=== PATIENT | male | born 1960 | race Caucasian/White ===

== ENCOUNTER 2016-10-16 21:02 | Emergency (ER) | payer OTHER ==
[~2016-10-16] VITALS: Ht 154.9 cm; Wt 72.6 kg
[~2016-10-16 21:02] MED LIST: ALBU0.094 IH
[2016-10-16 21:03] VITALS: BP 138/93
--- NOTE | 2016-10-16 21:10 | NUR ---
TO ER BED 5
--- NOTE | 2016-10-16 21:12 | NUR ---
56 Y/O M W/C/O BILATERAL UPPER WHEEZES, AND CRAMPING TO UPPER EXTREMITIES X 2 HRS AGO. O2 SAT 98%, WHEEZES NOTED BILATERAL UPPER LOBES, TALKING, NO OTHER S/S OF DISTRESS NOTED. ER MD NOTIFIED.
--- NOTE | 2016-10-16 21:40 | NUR ---
PT RESTING IN BED, O2 SAT 99%, RA, NO S/S OF RESP DISTRESS PRESENT AT THE MOMENT. WILL CONT TO MONITOR.
[2016-10-16] MEDS: ALBUTEROL SULFATE/IPRATROPIU 3 ML SOL IH ONE (21:50)
[2016-10-16] MEDS: methylPREDNISolone SS 125 MG in WATER STERILE 2 ML IM ONE (21:54)
[2016-10-16 22:11] VITALS: BP 124/82
--- NOTE | 2016-10-16 22:11 | NUR ---
Patient discharged with v/s stable. Written and verbal after care instructions given and explained. Patient alert, oriented and verbalized understanding of instructions. Ambulatory with steady gait. All questions addressed prior to discharge. ID band removed. Patient advised to follow up with PMD TOMORROW OR RETURN TO ER IF CONDITION WORSENS. Rx of ATROVENT, AND PREDNISONE given. Patient educated on indication of medication including possible reaction and side effects. Opportunity to ask questions provided and answered.
== END 2016-10-16 22:11 | disposition home or self-care (01) ==
LOC: MED 21:02
DX: J45.901 Unspecified asthma with (acute) exacerbation (principal); R03.0 Elevated blood-pressure reading, without diagnosis of hypertension; Z71.6 Tobacco abuse counseling; J44.9 Chronic obstructive pulmonary disease, unspecified; F17.200 Nicotine dependence, unspecified, uncomplicated
CPT/HCPCS: 71010; 94640; 96372; 99283; J2930; J7620; Q0092

== ENCOUNTER 2017-08-03 06:25 | Emergency (ER) | payer OTHER ==
[~2017-08-03] VITALS: Ht 180.3 cm; Wt 70.3 kg
[2017-08-03 06:30] VITALS: BP 105/74
[2017-08-03] MEDS ORDERED: predniSONE 20 MG TAB PO ONE (06:45)
[2017-08-03] MEDS ORDERED: ALBUTEROL SULFATE/IPRATROPIU 3 ML SOL IH ONE (06:45)
[2017-08-03] MEDS ORDERED: ALBUTEROL 0.083% 2.5 MG/3 ML NEBU INH ONE ×2 (06:45→07:35)
[2017-08-03] MEDS ORDERED: AZITHROMYCIN 250 MG TAB PO ONE (07:35)
[2017-08-03 08:19] VITALS: BP 120/66
== END 2017-08-03 08:19 | disposition home or self-care (01) ==
LOC: MED 06:25
DX: J45.909 Unspecified asthma, uncomplicated (principal); F17.210 Nicotine dependence, cigarettes, uncomplicated
CPT/HCPCS: 94640; 99284; J7512; J7613; J7620

== ENCOUNTER 2018-06-01 00:47 | Emergency (ER) | payer OTHER ==
[~2018-06-01] VITALS: Ht 180.3 cm; Wt 72.6 kg
[2018-06-01 01:00] VITALS: BP 123/48
--- NOTE | 2018-06-01 01:03 | NUR ---
PT AMBULATED TO LOBBY.
--- NOTE | 2018-06-01 01:17 | NUR ---
PT TAKEN TO [facility] FROM [facility]
--- NOTE | 2018-06-01 01:31 | NUR ---
PT TAKEN TO BED 12
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
[2018-06-01 02:30] VITALS: BP 109/64
== END 2018-06-01 02:30 | disposition home or self-care (01) ==
LOC: MED 00:47
DX: M79.605 Pain in left leg (principal); W22.8XXA Striking against or struck by other objects, initial encounter; Y93.01 Activity, walking, marching and hiking; Y92.89 Other specified places as the place of occurrence of the external cause; Y99.8 Other external cause status
CPT/HCPCS: 73590; 99283

== ENCOUNTER 2018-06-05 11:55 | Emergency (ER) | payer OTHER ==
[~2018-06-05] VITALS: Ht 180.3 cm; Wt 70.8 kg
[2018-06-05 12:01] VITALS: BP 129/76
--- NOTE | 2018-06-05 12:07 | NUR ---
PATIENT AMBULATED TO BED 3.
--- NOTE | 2018-06-05 12:10 | NUR ---
C/O FOOT PAIN X4 DAYS. WAS SEEN IN [facility] ER 06/01/18 FOR FOOT PAIN AND WAS INFORMED IT IS "SPRAINED". PT STATES L FOOT HAS GOTTEN REDDER, MORE SWOLLEN AND PAINFUL SINCE THEN. DENIES N/V/D/FEVER OR ANY NEW INJURY. L FOOT APPEARS REDDENED/SWOLLEN W/ PITTING EDEMA, <3 SEC CAP REFIL, +2 PEDAL PULSE, MOTOR/SENSORY FUNCTIONS INTACT. AAOX4 WITH UNSTEADY GAIT; LUNGS CLEAR BL; HR EVEN AND REGULAR; PT DENIES ANY FEVER, CP, SOB, OR COUGH AT THIS TIME; VSS; PATIENT POSITIONED FOR COMFORT; HOB ELEVATED; BEDRAILS UP X1; L FOOT ELEVATED. BED DOWN. ER MD MADE AWARE OF PT STATUS.
--- NOTE | 2018-06-05 12:25 | NUR ---
ERMD AT BEDSIDE
[2018-06-05 12:40] VITALS: BP 130/76
--- NOTE | 2018-06-05 12:41 | NUR ---
Patient discharged with v/s stable. Written and verbal after care instructions given and explained. Patient alert, oriented and verbalized understanding of instructions. Ambulatory with steady gait. All questions addressed prior to discharge. ID band removed. Patient advised to follow up with PMD. Rx of NORCO, BACTRIM, KEFLEX given. Patient educated on indication of medication including possible reaction and side effects. Opportunity to ask questions provided and answered.
== END 2018-06-05 12:41 | disposition home or self-care (01) ==
LOC: MED 11:55
DX: L02.436 Carbuncle of left lower limb (principal); J44.9 Chronic obstructive pulmonary disease, unspecified; F17.210 Nicotine dependence, cigarettes, uncomplicated; Z79.899 Other long term (current) drug therapy
CPT/HCPCS: 99283

== ENCOUNTER 2019-02-14 11:24 | Inpatient (IN) | payer OTHER ==
[~2019-02-14] VITALS: Ht 180.3 cm; Wt 69.0 kg
[~2019-02-14 11:24] MED LIST changes: -ALBU0.094 IH; +ALBU6.7H IH
[2019-02-14 11:35] VITALS: BP 155/93
[2019-02-14] MEDS ORDERED: ACETAMINOPHEN 325 MG TAB PO ONE (11:40)
--- NOTE | 2019-02-14 11:42 | NUR ---
Patient ambulated to bed 1. RN evaluating patient at bedside.
[2019-02-14 12:10] LABS: BASOPHILS % (AUTO) 0.4 % (0.0-2.0); EOSINOPHILS # (AUTO) 0.1 K/uL (0-0.4); EOSINOPHILS % (AUTO) 0.6 % (0.0-4.0); HEMATOCRIT 42.3 % (36-52); HEMOGLOBIN 13.9 g/dL (12.0-18.0); LYMPHOCYTES # (AUTO) 0.7 K/uL (2.0-11.5); LYMPHOCYTES % (AUTO) 5.4 % (20.5-51.1); MEAN CORPUSCULAR HEMOGLOBIN 30 pg (27-31); MEAN CORPUSCULAR HGB CONC 33 g/dL (33-37); MEAN CORPUSCULAR VOLUME 90.3 fL (80-94); MONOCYTES # (AUTO) 1.2 K/uL (0.8-1.0); MONOCYTES % (AUTO) 9.8 % (1.7-9.3); NEUTROPHILS # (AUTO) 10.3 K/uL (1.8-7.7); NEUTROPHILS % (AUTO) 83.8 % (42.2-75.2); PLATELET COUNT (AUTO) 300 K/uL (140-450); RED BLOOD CELL COUNT(AUTO) 4.69 MIL/uL (4.20-6.10); WHITE BLOOD COUNT (AUTO) 12.3 K/uL (4.8-10.8)
[2019-02-14] MEDS ORDERED: PIPERACILLIN/TAZOBACTAM 4.5 GM in DEXTROSE 5% 100 ML IV ONE (12:20)
[2019-02-14] MEDS ORDERED: VANCOMYCIN 1,000 MG in DEXTROSE 5% 250 ML IV ONE (12:20)
[2019-02-14 12:24] LABS: ANION GAP 9.7 (8-16); CARBON DIOXIDE 32.1 mmol/L (21-32); CREATININE 1.1 mg/dL (0.7-1.3); POTASSIUM 3.8 mmol/L (3.5-5.1)
[2019-02-14 12:30] LABS: ALBUMIN 3.8 g/dL (3.4-5.0); TOTAL BILIRUBIN 0.3 mg/dL (0.0-1.0)
[2019-02-14 12:46] LABS: APPEARANCE,URINE SL CLOUDY (CLEAR); BILIRUBIN,URINE NEGATIVE (NEGATIVE); BLOOD, URINE 2+ (NEGATIVE); COLOR,URINE YELLOW (YELLOW); LEUKOCYTE ESTERASE ,URINE 2+ (NEGATIVE); NITRITE, URINE POSITIVE (NEGATIVE); UGLUCOSE NEGATIVE (NEGATIVE)
--- NOTE | 2019-02-14 12:48 | NUR ---
EKG completed at bedside by EMT.
[2019-02-14] MEDS ORDERED: PIPERACILLIN/TAZOBACTAM 2.25 GM VIAL IV ONE (12:49)
[2019-02-14 13:23] LABS: WBC,URINE 80-100 /HPF (0-5)
--- NOTE | 2019-02-14 13:56 | NUR ---
Patient taken to CT scan via gurney by [employer]
--- NOTE | 2019-02-14 14:10 | NUR ---
PT TO CT VIA WHEELCHAIR
--- NOTE | 2019-02-14 14:27 | NUR ---
PT RETURNED FROM CT, IV RECONECTED. ZOSYN RUNNING WITHOUT ADVERSE REACTION.
[2019-02-14] MEDS ORDERED: VANCOMYCIN 1,000 MG VIAL ONE (14:57)
[2019-02-14] MEDS ORDERED: NACL 0.9% 2,100 ML IV ONE (15:05)
--- NOTE | 2019-02-14 15:30 | NUR ---
PT IV SITES ASSESSED, FLUIDS/MEDICATION RUNNING WITHOUT ADVERSE REACTIONS. PT RESTING, EYES CLOSED. MOTHER AT BEDSIDE.
[2019-02-14] MEDS ORDERED: HYDROcodone/APAP 5/325 MG 1 TAB TAB PO PRN (16:55)
[2019-02-14] MEDS ORDERED: ONDANSETRON 4 MG/2 ML VIAL IVP PRN (16:55)
[2019-02-14] MEDS ORDERED: ALBUTEROL 0.083% 2.5 MG/3 ML NEBU INH PRN (16:55)
--- NOTE | 2019-02-14 16:56 | NUR ---
PT IV FLUIDS/MEDICATIONS FINISHED INFUSING. PT AMBULATED TO RESTROOM. PT DOES NOT WANT TO BE ADMITTED, ADVISED AND WILL SPEAK WITH PT. MOTHER AND SISTER AT PT BEDSIDE.
[2019-02-14] MEDS ORDERED: MORPHINE SULFATE 4 MG/ML SYR IVP ONE (17:10)
[2019-02-14] MEDS: NACL 0.9% 1,000 ML IV SCH (17:34)
--- NOTE | 2019-02-14 18:15 | NUR ---
Patient will be admitted to care of DR WEINSTEIN. Admited to MED SURG TELE. Will go to room 112A. Belongings SENT WITH PT FAMILY. Report to DAYANNA DOWELL.
--- NOTE | 2019-02-14 18:15 | NUR ---
RECEIVED REPORT FROM ER NURSE FOR CONTINUITY OF CARE. PATIENT IS WAS ORIENTED TO THE UNIT, MRSA NARES COMPLETED, VITALS TAKEN. PATIENT IS RESTING IN BED. WILL CONTINUE TO MONITOR. Addendum: 02/14/19 at 1849 by Alan Hatch RN B/P : 151/81, SPO2 99%, PULSE 98, TEMP ORAL 103.1, RR 18, GENERALIZED PAIN/DISCOMFORT 5/10
[2019-02-14] MEDS: ACETAMINOPHEN 325 MG TAB PO PRN (18:47)
--- NOTE | 2019-02-14 19:20 | NUR ---
REPORT GIVEN TO ONCOMING CHILD CARE CENTRE DIRECTOR NURSE FOR CONTINUITY OF CARE.
--- NOTE | 2019-02-14 19:21 | NUR ---
RECEIVED REPORT FROM AM SHIFT NURSE. PATIENT ALERT AND ORIENTED X4. NO APPARENT DISTRESS NOTED. INTRODUCED SELF AND UPDATED BOARD. ORIENTED TO HOSPITAL ROUTINE, ENVIRONMENT AND CALL LIGHT WITHIN REACH. WITH PIV ON LEFT AC 20G RUNNING IVF AND RIGHT AC 20G PATENT AND INTACT. WITH COMPLAINT OF 6/10 PAIN ON ABDOMEN AREA. WILL MEDICATE PER PAIN SCALE. GIRLFRIEND AND SISTER AT BEDSIDE. WILL CONTINUE TO MONITOR.
[2019-02-14 19:30] VITALS: BP 132/70
--- NOTE | 2019-02-14 21:20 | NUR ---
ROUNDS DONE. PATIENT AWAKE IN BED. NO APPARENT DISTRESS NOTED. WILL CONTINUE TO MONITOR.
[2019-02-14] MEDS: MORPHINE SULFATE 4 MG/ML SYR IVP PRN (22:08)
--- NOTE | 2019-02-14 23:15 | NUR ---
PATIENT ASLEEP IN BED. VISIBLE CHEST RISE AND FALL NOTED. NO APPARENT DISTRES NOTED. WILL CONTINUE TO MONITOR.
[2019-02-15] VITALS: BP 137/64
[2019-02-15] MEDS: ACETAMINOPHEN 325 MG TAB PO PRN (00:16)
--- NOTE | 2019-02-15 00:20 | NUR ---
CHECKED VITAL SIGNS. NOTED WITH TEMP OF 101. GIVEN TYLENOL 650MG FOR FEVER GREATER THAN 100.4. COOLING MEASURES IN PLACE. WILL CONTINUE TO MONITOR.
--- NOTE | 2019-02-15 01:44 | NUR ---
RECHECKED TEMP. NOTED AT 102.4. CALLED SUPERVISOR LATHING DOCTOR. SPOKE TO DR. MINA. PER DR. MINA, IT'S OKAY. NO NEW ORDERS AT THIS TIME. WILL CONTINUE TO MONITOR.
--- NOTE | 2019-02-15 03:22 | NUR ---
RECEIVED CRITICAL LAB RESULT FROM SILVINO FROM LAB AT 0303 FOR POSITIVE BLOOD CULTURE FOR GRAM NEGATIVE RODS. CALLED TO PAGE VIDEO EDITING INTERNSHIP DOCTOR AT 0308. CALLED MD FOR 2ND PAGE AT 0318. MD CALLED BACK AT 0322. NO NEW ORDERS AT THIS TIME.
[2019-02-15] MEDS: NACL 0.9% 1,000 ML IV SCH ×2 (03:34→13:34)
[2019-02-15 04:00] VITALS: BP 110/58
--- NOTE | 2019-02-15 05:20 | NUR ---
PATIENT ASLEEP IN BED. NO APPARENT DISTRESS NOTED. VISIBLE CHEST RISE AND FALL NOTED. WILL CONTINUE TO MONITOR.
--- NOTE | 2019-02-15 06:46 | NUR ---
PATIENT ASLEEP IN BED. NO APPARENT DISTRESS NOTED. WILL CONTINUE TO MONITOR.
[2019-02-15 06:51] LABS: BASOPHILS % (AUTO) 0.3 % (0.0-2.0); EOSINOPHILS # (AUTO) 0.1 K/uL (0-0.4); EOSINOPHILS % (AUTO) 0.5 % (0.0-4.0); HEMATOCRIT 37.7 % (36-52); HEMOGLOBIN 12.4 g/dL (12.0-18.0); LYMPHOCYTES # (AUTO) 1.5 K/uL (2.0-11.5); LYMPHOCYTES % (AUTO) 10.1 % (20.5-51.1); MEAN CORPUSCULAR HEMOGLOBIN 29 pg (27-31); MEAN CORPUSCULAR HGB CONC 33 g/dL (33-37); MEAN CORPUSCULAR VOLUME 88.7 fL (80-94); MONOCYTES # (AUTO) 1.9 K/uL (0.8-1.0); MONOCYTES % (AUTO) 12.8 % (1.7-9.3); NEUTROPHILS # (AUTO) 11.4 K/uL (1.8-7.7); NEUTROPHILS % (AUTO) 76.3 % (42.2-75.2); PLATELET COUNT (AUTO) 239 K/uL (140-450); RED BLOOD CELL COUNT(AUTO) 4.25 MIL/uL (4.20-6.10); RED CELL DISTRIBUTION WIDTH 12.8 % (11.6-13.7)
--- NOTE | 2019-02-15 07:05 | NUR ---
ENDORSED TO AM SHIFT NURSE FOR CONTINUITY OF CARE.
--- NOTE | 2019-02-15 07:06 | NUR ---
RECEIVED REPORT FROM NIGHT NURSE. PT ASLEEP BUT WOKE UP AND IS AOX4, PT INFORMED OF CHANGE OF SHIFT. LAC 20G, RUNNING NS AT 100ML/H, INTRODUCE SELF, UPDATED WHITE BOARD, PT IS STABLE, CALL LIGHT WITHIN REACH.
[2019-02-15 07:10] LABS: ANION GAP 10.5 (8-16); CARBON DIOXIDE 27.4 mmol/L (21-32)
[2019-02-15 07:14] LABS: POTASSIUM 2.9 mmol/L (3.5-5.1)
[2019-02-15 07:15] LABS: MAGNESIUM 1.6 mg/dL (1.8-2.4); PHOSPHORUS 2.7 mg/dL (2.5-4.9)
[2019-02-15 08:00] VITALS: BP 125/67
--- NOTE | 2019-02-15 09:02 | NUR ---
PT HAS BEEN SCREENED AND CATEGORIZED LOW NUTRITION RISK. PT WILL BE SEEN WITHIN 5-7 DAYS OF ADMISSION. 02/19/19-02/21/[address]
[2019-02-15] MEDS ORDERED: POTASSIUM CHLORIDE 40 MEQ, LIDOCAINE MPF 1% 25 MG in NACL 0.9% 250 ML IV ONE (09:30)
[2019-02-15] MEDS ORDERED: MAG SULF 2000 MG/WATER PREMIX 50 ML IV ONE (10:25)
[2019-02-15] MEDS: MORPHINE SULFATE 4 MG/ML SYR IVP PRN ×3 (10:34→20:39)
--- NOTE | 2019-02-15 10:41 | NUR ---
ADMINISTERED ORDER MEDICATION, PT TOLERATING WELL. PT IS STABLE, WILL CONTINUE TO MONITOR, CALL LIGHT WITHIN REACH.
[2019-02-15 12:00] VITALS: BP 153/83
[2019-02-15] MEDS ORDERED: MAGNESIUM HYDROXIDE 2400 MG/30 ML UDC PO PRN (12:35)
[2019-02-15] MEDS: IBUPROFEN 400 MG TAB PO PRN (13:25)
--- NOTE | 2019-02-15 13:25 | NUR ---
ADMINISTER IBUPROFEN FOR FEVER OF 100.1, PT TOLERATED IT WELL. CALL LIGHT WITHIN REACH.
--- NOTE | 2019-02-15 14:47 | NUR ---
ADMINISTER PAIN MEDICATION FOR ABDOMINAL PAIN, PT TOLERATED MEDICATION WELL. PT STABLE, FAMILY AT BEDSIDE, CALL LIGHT WITHIN REACH.
[2019-02-15 16:00] VITALS: BP 119/58
--- NOTE | 2019-02-15 18:00 | NUR ---
PT IS STABLE, RESPIRATION ARE EVEN AND UNLABORED, CALL LIGHT WITHIN REACH.
--- NOTE | 2019-02-15 19:20 | NUR ---
RECEIVED REPORT FROM BRAD RN DAYSHIFT NURSE AT BEDSIDE FOR CONTINUITY OF CARE PT IN STABLE CONDITION.
[2019-02-15 20:00] VITALS: BP 119/67
--- NOTE | 2019-02-15 20:40 | NUR ---
PT IN LOW BED WITH SIDE RAILS UP X2. HE IS ALERT AND AWAKE WITH C/O OF 7/10 PAIN ON LOWER LEFT QUADRANT. PT HAS 2 IVS' BOTH RIGHT AC 20G AND LEFT F/A 20 G INTACT AND ASYMPTOMATIC. LEFT F/A HAS N/S RUNNING AT 100MLS/HR. PT GIVEN PRN/IVP MORPHINE FOR SEVERE PAIN. ROCEPHIN IVPB HUNG AND RUNNING AT 100MLS/HR ORDERED. EDUCATION REGARDING MEDICATION, IT PURPOSE AND SIDE EFFECTS, PROVIDED TO PT AT BEDSIDE. PT VERBALIZED UNDERSTANDING. V/S FOLLOWS: T 98.3 P 83 R 18 B/P 119/67 02 975 ON ROOM AIR. ALL UNIVERSAL FALLS PRECAUTIONS IN PLACE.
[2019-02-15] MEDS ORDERED: ZOLPIDEM 5 MG TAB PO PRN (21:00)
--- NOTE | 2019-02-15 23:30 | NUR ---
PT IN BED ASLEEP NO S/S OF PAIN OR DISTRESS NOTED. NORMAL SALINE FLUID BAG REPLACED , HUNG AND RUNNING NS AT 100MLS/HR ORDERED. BED LOW SIDE RAILS UP X2 AND ALL UNIVERSAL FALLS PRECAUTIONS IN PLACE.
[2019-02-16 00:32] VITALS: BP 131/67
[2019-02-16] MEDS: NACL 0.9% 1,000 ML IV SCH ×2 (00:41→08:55)
[2019-02-16] MEDS: MORPHINE SULFATE 4 MG/ML SYR IVP PRN ×2 (02:29→07:52)
[2019-02-16] MEDS: IBUPROFEN 400 MG TAB PO PRN (02:42)
--- NOTE | 2019-02-16 02:51 | NUR ---
PT C/O OF PAIN IN LOWER LEFT QUADRANT. PT GIVEN IVP MORPHINE, RETAKE OF PT IS 101.7 PT GIVEN COOLING MEASURES AND PO/PRN MOTRIN FOR FEVER. WILL CONTINUE TO MONITOR FOR PAIN REIELF AND INCREASED TEMP.
[2019-02-16 04:00] VITALS: BP 131/67
--- NOTE | 2019-02-16 04:15 | NUR ---
PT IN BED, NO S/S OF PAIN OR DISTRESS NOTED. V/S FOLLOWS: T 97.0 P 64 R 18 B/P 129/79 02 96% ON ROOM AIR .ALL UNIVERSAL FALLS PRECAUTIONS IN PLACE AND ALL REQUESTED NEEDS ATTENDED BY STAFF.
--- NOTE | 2019-02-16 07:15 | NUR ---
REPORT RECEIVED FROM LEGISLATORS NURSE AT BEDSIDE FOR CONTINUITY OF CARE. PATIENT AWAKE AND ALERT, PT AMBULATES TO BATHROOM AND USES URINAL. IV SITES INTACT, IV SITE TO LEFT AC INFUSING IVF WELL. IV TO RIGHT AC SL. RESPIRATIONS EVEN AND UNLABORED ON ROOM AIR. PATIENT C/O 7/10 ABD PAIN AT THIS TIME, WILL ASSESS AND MEDICATE. UPDATED BOARD. UPDATED PATIENT ABOUT PLAN OF CARE. HE VERBALIZED UNDERSTANDING. CALL LIGHT WITHIN REACH, WILL CONTINUE TO MONITOR PATIENT.
[2019-02-16 07:21] LABS: ANION GAP 9.9 (8-16); CARBON DIOXIDE 26.2 mmol/L (21-32); CREATININE 0.7 mg/dL (0.7-1.3); POTASSIUM 3.1 mmol/L (3.5-5.1)
[2019-02-16 07:22] LABS: BASOPHILS # (AUTO) 0.1 K/uL (0.00-0.22); BASOPHILS % (AUTO) 0.4 % (0.0-2.0); EOSINOPHILS # (AUTO) 0.1 K/uL (0-0.4); EOSINOPHILS % (AUTO) 0.7 % (0.0-4.0); HEMATOCRIT 35.8 % (36-52); HEMOGLOBIN 11.9 g/dL (12.0-18.0); LYMPHOCYTES # (AUTO) 1.2 K/uL (2.0-11.5); LYMPHOCYTES % (AUTO) 7.8 % (20.5-51.1); MEAN CORPUSCULAR HEMOGLOBIN 30 pg (27-31); MEAN CORPUSCULAR HGB CONC 33 g/dL (33-37); MEAN CORPUSCULAR VOLUME 88.8 fL (80-94); MONOCYTES # (AUTO) 1.6 K/uL (0.8-1.0); MONOCYTES % (AUTO) 10.8 % (1.7-9.3); NEUTROPHILS # (AUTO) 12.1 K/uL (1.8-7.7); NEUTROPHILS % (AUTO) 80.3 % (42.2-75.2); PLATELET COUNT (AUTO) 235 K/uL (140-450); RED BLOOD CELL COUNT(AUTO) 4.03 MIL/uL (4.20-6.10); RED CELL DISTRIBUTION WIDTH 12.8 % (11.6-13.7)
[2019-02-16 07:34] LABS: MAGNESIUM 1.8 mg/dL (1.8-2.4); PHOSPHORUS 2.8 mg/dL (2.5-4.9)
[2019-02-16 07:48] VITALS: BP 122/60
--- NOTE | 2019-02-16 07:52 | NUR ---
PT MEDICATED WITH PRN IVP PAIN MEDICATION FOR 7 C/O PAIN. PATIENT TOLERATED IT WELL. BREAKFAST SET UP. PATIENT CURRENTLY SITTING UP IN BED EATING BREAKFAST. NO COMPLAINTS AT THIS TIME. CALL LIGHT WITHIN REACH, WILL CONTINUE TO MONITOR PATIENT.
--- NOTE | 2019-02-16 08:06 | NUR ---
ORDERED MEDICATIONS GIVEN. PATIENT TOLERATED THEM WELL. IVP PRN PAIN MEDICATION GIVEN TO C/O 08/28 PAIN. PATIENT RESTING COMFORTABLY IN BED, URINAL EMPTIED OF 750 ML OF YELLOW URINE. PATIENT HAS NO COMPLAINTS AT THIS TIME. CALL LIGHT WITHIN REACH, WILL CONTINUE TO MONITOR PATIENT.
[2019-02-16] MEDS ORDERED: POTASSIUM CHLORIDE 10 MEQ TABER PO SCH ×2 (09:00→10:40)
--- NOTE | 2019-02-16 10:16 | NUR ---
DR MINA IN TO SEE PATIENT. FAMILY MEMBER AT BEDSIDE. INFORM DR. MINA ABOUT PATIENT K LEVEL OF 3.1, YESTERDAY'S DOSE OF 40MEQ IV AND 40 MEQ ORALLY THIS AM. WILL WAIT FOR NEW ORDERS.
[2019-02-16] MEDS ORDERED: LEVO750T2 PO (10:40)
--- NOTE | 2019-02-16 10:57 | NUR ---
ONE TIME DOSE OF 40MEQ ORAL POTASSIUM GIVEN TO PATIENT. PATIENT AND FAMILY AWARE OF PENDING DISCHARGE. PATIENT'S SISTER WILL BRING PATIENT'S CLOTHING.
--- NOTE | 2019-02-16 11:30 | NUR ---
DISCHARGE INSTRUCTIONS GIVEN TO PATIENT. PATIENT AWARE ABOUT PCP FOLLOW UP. TAKING ALL PRESCRIBED MEDICATIONS ORDERED AND TO GO TO ER FOR ANY WORSENING SYMPTOMS. EDUCTION GIVEN TO PATIENT ABOUT PRESCRIBED MEDICATIONS AND DIAGNOSIS. PATIENT VERBALIZED UNDERSTANDING. IV REMOVED, IV CANNULAS INTACT, MINIMAL BLEEDING NOTE. ID BANDS. TELE MONITOR REMOVED. PATIENT REFUSED FLU VACCINE, PNA VACCINE NOT APPLICABLE. PATIENT WILL NOW CHANGE INTO HIS OWN CLOTHING THAT HIS SISTER BROUGHT HIM.
--- NOTE | 2019-02-16 11:50 | NUR ---
PATIENT AMBULATED OFF FLOOR WITH FAMILY MEMBERS TO BE DISCHARGED HOME. PATIENT TOOK ALL HIS BELONGINGS WITH HIM. PATIENT IN STABLE CONDITION.
--- NOTE | 2019-02-16 14:21 | NUR ---
CM ATTEMPTED TO CONDUCT SCREEN, PATIENT IS DC.
== END 2019-02-16 11:50 | disposition home or self-care (01) | DRG 720 ==
LOC: MED 11:24 → MTU 16:55
PROVIDERS: ADMIT Internal Medicine Pulmonary Disease; ATTEND Internal Medicine Pulmonary Disease
DX: A41.9 Sepsis, unspecified organism (principal); N10 Acute pyelonephritis; F15.10 Other stimulant abuse, uncomplicated; J44.9 Chronic obstructive pulmonary disease, unspecified
CPT/HCPCS: 36415; 71045; 80048; 80053; 81001; 83605; 83735; 83880; 84100; 84484; 85025; 87040; 87081; 87086; 87186; 93005; 96365; 96366; 96367; 96375; 99291; J0696; J2001; J2270; J2543; J3370; J3480; J7030; J7060; Q0092; Q9967

== ENCOUNTER 2020-02-06 22:52 | Emergency (ER) | payer OTHER ==
[~2020-02-06] VITALS: Ht 180.3 cm; Wt 74.8 kg
[~2020-02-06 22:52] MED LIST changes: +LEVO750T2 PO
[2020-02-06 23:20] VITALS: BP 161/92
--- NOTE | 2020-02-06 23:20 | NUR ---
TO TENT # 02 AMBULATORY
--- NOTE | 2020-02-06 23:22 | NUR ---
SWAB DONE AND SENT TO LAB
[2020-02-06 23:30] VITALS: BP 161/92
[2020-02-07] MEDS ORDERED: ACETAMINOPHEN EXTRA STRENGTH 500 MG TAB ONE (00:39)
[2020-02-07] MEDS ORDERED: ACETAMINOPHEN EXTRA STRENGTH 500 MG TAB PO ONE (00:40)
--- NOTE | 2020-02-07 00:40 | NUR ---
MEDICATED PER ERMDS ORDER, TOLERATED WELL.
--- NOTE | 2020-02-07 01:20 | NUR ---
PATIENT LEFT WITHOUT DISCHARGE INSTRUCTIONS, AND PRESCRIPTION
== END 2020-02-07 01:20 | disposition home or self-care (01) ==
LOC: MED 22:52
DX: R50.9 Fever, unspecified (principal); J44.9 Chronic obstructive pulmonary disease, unspecified; R03.0 Elevated blood-pressure reading, without diagnosis of hypertension; F17.200 Nicotine dependence, unspecified, uncomplicated; Z79.899 Other long term (current) drug therapy
CPT/HCPCS: 71045; 99284

== ENCOUNTER 2020-02-29 08:44 | Emergency (ER) | payer OTHER ==
[~2020-02-29] VITALS: Ht 180.3 cm; Wt 74.8 kg
[2020-02-29 08:49] VITALS: BP 160/81
--- NOTE | 2020-02-29 08:52 | NUR ---
TO LOBBY A/W BED AMBULATORY
[2020-02-29] MEDS ORDERED: TETRACAINE HCL/PF 0.5% OPTH 4 ML BTL ONE (09:30)
[2020-02-29] MEDS ORDERED: FLUORESCEIN OPTH STRIP 1 MG OP ONE ×2 (09:30→10:00)
[2020-02-29] MEDS ORDERED: FLUORESCEIN OPTH STRIP 1 MG ONE (09:30)
[2020-02-29] MEDS ORDERED: TETRACAINE HCL/PF 0.5% OPTH 4 ML BTL OP ONE (09:30)
[2020-02-29 10:48] VITALS: BP 160/81
--- NOTE | 2020-02-29 10:48 | NUR ---
Patient discharged with v/s stable. Written and verbal after care instructions given and explained. Patient alert, oriented and verbalized understanding of instructions. Ambulatory with steady gait. All questions addressed prior to discharge. ID band removed. Patient advised to follow up with PMD. Rx of ERYTHROMYCIN given. Patient educated on indication of medication including possible reaction and side effects. Opportunity to ask questions provided and answered.
== END 2020-02-29 10:48 | disposition home or self-care (01) ==
LOC: MED 08:44
DX: T15.02XA Foreign body in cornea, left eye, initial encounter (principal); J44.9 Chronic obstructive pulmonary disease, unspecified; F17.200 Nicotine dependence, unspecified, uncomplicated; Z71.6 Tobacco abuse counseling; Z79.899 Other long term (current) drug therapy; X58.XXXA Exposure to other specified factors, initial encounter; Y93.89 Activity, other specified; Y92.89 Other specified places as the place of occurrence of the external cause; Y99.8 Other external cause status
CPT/HCPCS: 65220; 99284

== ENCOUNTER 2020-05-27 19:44 | Emergency (ER) | payer OTHER ==
[~2020-05-27] VITALS: Ht 180.3 cm; Wt 77.1 kg
[2020-05-27 19:54] VITALS: BP 140/100
[2020-05-27 20:46] VITALS: BP 184/97
== END 2020-05-27 20:46 | disposition home or self-care (01) ==
LOC: MED 19:44
DX: R07.89 Other chest pain (principal); J44.9 Chronic obstructive pulmonary disease, unspecified; Z79.899 Other long term (current) drug therapy
CPT/HCPCS: 93005; 99283

== ENCOUNTER 2020-08-28 17:39 | Emergency (ER) | payer OTHER ==
[~2020-08-28] VITALS: Ht 180.3 cm; Wt 78.5 kg
[2020-08-28 17:40] VITALS: BP 118/88
--- NOTE | 2020-08-28 17:46 | NUR ---
Patient wheelchair assisted to bed 6.
--- NOTE | 2020-08-28 17:56 | NUR ---
SOCORRO SALAMANCA AT BEDSIDE EVALUATING PATIENT
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
[2020-08-28] MEDS ORDERED: TETRACAINE HCL/PF 0.5% OPTH 4 ML BTL OP ONE (18:05)
[2020-08-28] MEDS ORDERED: FLUORESCEIN OPTH STRIP 1 MG OP ONE (18:05)
--- NOTE | 2020-08-28 18:08 | NUR ---
PT WASHED OUT EYES WITH EYEWASHER IN SINK FOR SEVERAL MINUTES. PT STATES NO RELIEF AND STILL HAS PAIN. SOCORRO SALAMANCA MADE AWARE
[2020-08-28] MEDS ORDERED: ERYT5OIN51 OP (18:22)
--- NOTE | 2020-08-28 18:50 | NUR ---
PT STATES HE STILL HAS EYE PAIN BUT IS MORE TOLERABLE NOW. SOCORRO SALAMANCA AWARE
[2020-08-28 18:53] VITALS: BP 118/88
--- NOTE | 2020-08-28 18:55 | NUR ---
Patient discharged with v/s stable. Written and verbal after care instructions about eye foreign body, corneal abrasion given and explained. Patient alert, oriented and verbalized understanding of instructions. Ambulatory with steady gait. All questions addressed prior to discharge. ID band removed. Patient advised to follow up with PMD. Rx of erythromycin given. Patient educated on indication of medication including possible reaction and side effects. Opportunity to ask questions provided and answered.
== END 2020-08-28 18:55 | disposition home or self-care (01) ==
LOC: MED 17:39
DX: H57.13 Ocular pain, bilateral (principal); J44.9 Chronic obstructive pulmonary disease, unspecified; F17.200 Nicotine dependence, unspecified, uncomplicated; Z79.899 Other long term (current) drug therapy
CPT/HCPCS: 99283

== ENCOUNTER 2021-05-05 02:57 | Emergency (ER) | payer OTHER ==
[~2021-05-05] VITALS: Ht 180.3 cm; Wt 79.4 kg
[~2021-05-05 02:57] MED LIST changes: +ERYT5OIN51 OP
[2021-05-05 03:01] VITALS: BP 141/78
--- NOTE | 2021-05-05 03:06 | NUR ---
Ambulatory to bed 7.
[2021-05-05] MEDS: LIDOCAINE MPF 1% 10 MG/ML VIAL INJ ONE ×2 (03:20→06:04)
[2021-05-05] MEDS: IBUPROFEN 800 MG TAB PO ONE (03:45)
--- NOTE | 2021-05-05 03:47 | NUR ---
pt states he had received his tetanus shot [address] Gibson made aware.
--- NOTE | 2021-05-05 04:08 | NUR ---
Called [place] [employer] [phone] and reported incident. They will send [place] [employer] to follow up.
--- NOTE | 2021-05-05 05:04 | NUR ---
[place] [employer] at bedside.
--- NOTE | 2021-05-05 05:34 | NUR ---
[place] law enforcement at bedside
[2021-05-05] MEDS ORDERED: LIDOCAINE MPF 1% 20 ML ONE (05:42)
--- NOTE | 2021-05-05 05:45 | NUR ---
Darell arechiga in ED - 05/05/[address] Gibson at bedside doing laceration repair.
--- NOTE | 2021-05-05 05:50 | NUR ---
4 wilmer on left side of head and 6 sutures on left side of ear. wound cleaned and nonadherent dressing applied.
--- NOTE | 2021-05-05 05:52 | NUR ---
Dr. Rodriguez at bedside for laceration repair.
[2021-05-05 06:24] VITALS: BP 140/69
--- NOTE | 2021-05-05 06:25 | NUR ---
Patient discharged with v/s stable. Written and verbal after care instructions given and explained. Patient verbalized understanding. Ambulatory with steady gait. All questions addressed prior to discharge. Advised to follow up with PMD. copy of imaging results given to pt.
== END 2021-05-05 06:25 | disposition home or self-care (01) ==
LOC: MED 02:57
DX: S01.81XA Laceration without foreign body of other part of head, initial encounter (principal); S01.312A Laceration without foreign body of left ear, initial encounter; I10 Essential (primary) hypertension; Z79.899 Other long term (current) drug therapy; Y04.2XXA Assault by strike against or bumped into by another person, initial encounter; Y93.89 Activity, other specified; Y92.89 Other specified places as the place of occurrence of the external cause; Y99.8 Other external cause status
CPT/HCPCS: 12002; 12013; 70450; 72125; 73080; 90715; 99284; J2001

== ENCOUNTER 2021-05-10 21:20 | Emergency (ER) | payer OTHER ==
[~2021-05-10] VITALS: Ht 180.3 cm; Wt 79.4 kg
[2021-05-10 21:29] VITALS: BP 130/68
--- NOTE | 2021-05-10 21:34 | NUR ---
TO LOBBY FOLLOWING TRIAGE
--- NOTE | 2021-05-10 22:24 | NUR ---
ERMD EVALUATING PT.
[2021-05-10 22:38] VITALS: BP 130/68
--- NOTE | 2021-05-10 22:38 | NUR ---
seen by ERMD no nursing interventions needed for patient.
--- NOTE | 2021-05-10 22:38 | NUR ---
Patient discharged with v/s stable. Written and verbal after care instructions given and explained. Patient verbalized understanding. Ambulatory with steady gait. ID band removed. All questions addressed prior to discharge. Advised to follow up with PMD.
== END 2021-05-10 22:38 | disposition home or self-care (01) ==
LOC: MED 21:20
DX: S01.312D Laceration without foreign body of left ear, subsequent encounter (principal); I11.9 Hypertensive heart disease without heart failure; J45.909 Unspecified asthma, uncomplicated; Z48.00 Encounter for change or removal of nonsurgical wound dressing; X58.XXXD Exposure to other specified factors, subsequent encounter
CPT/HCPCS: 99281

== ENCOUNTER 2022-05-28 03:32 | Emergency (ER) | payer OTHER ==
[~2022-05-28] VITALS: Ht 180.3 cm; Wt 74.8 kg
[~2022-05-28 03:32] MED LIST changes: -ALBU6.7H IH; +ALBU6.7H6 IH
[2022-05-28 03:38] VITALS: BP 143/79
--- NOTE | 2022-05-28 03:54 | NUR ---
PT AMBULATE TO ROOM 4
--- NOTE | 2022-05-28 04:15 | NUR ---
DR LAU AT BEDSIDE
--- NOTE | 2022-05-28 04:21 | NUR ---
62YR OLD MALE BIB SELF C/O RLQ /GROIN PAIN XTODAY. PT IS A&OX4. PT STATES PAIN IS 8/10 NON RADIATING SHARP /DULL. SOME URINARY RENTENION. LUMP PALPATED IN RLQ. DENIES BLOOD IN URINE IS HAVING SOME PAIN WITH URINATION. DR LUA AT BEDSIDE. NKDA ACUTE NM X3 COPD HTN
[2022-05-28] MEDS ORDERED: IBUP-2213 PO (04:26)
--- NOTE | 2022-05-28 04:37 | NUR ---
Patient discharged with v/s stable. Written and verbal after care instructions given and explained. Patient verbalized understanding. Ambulatory with steady gait. All questions addressed prior to discharge. Advised to follow up with PMD.
== END 2022-05-28 04:37 | disposition home or self-care (01) ==
LOC: MED 03:32
DX: R10.31 Right lower quadrant pain (principal); J45.909 Unspecified asthma, uncomplicated; I10 Essential (primary) hypertension; E11.9 Type 2 diabetes mellitus without complications; I25.10 Atherosclerotic heart disease of native coronary artery without angina pectoris; Z79.4 Long term (current) use of insulin; Z79.899 Other long term (current) drug therapy
CPT/HCPCS: 99282

== ENCOUNTER 2022-09-15 01:50 | Emergency (ER) | payer OTHER ==
[~2022-09-15 01:50] MED LIST changes: +IBUP-2213 PO
--- NOTE | 2022-09-15 02:11 | NUR ---
patient call to be triage , he refuses. PATIENT LEFT WITHOUT BEING SEEN BY DR. CHAIREZ. NO FURTHER CARE PROVIDED FOR PATIENT.
--- NOTE | 2022-09-15 02:16 | NUR ---
CALLED FOR THE SECOND TIME, NO RESPONSE
--- NOTE | 2022-09-15 02:27 | NUR ---
CALLED FOR THE THIRD TIME NO RESPONSE
== END 2022-09-15 02:27 | disposition left against medical advice (07) ==
LOC: MED 01:50
DX: R10.9 Unspecified abdominal pain (principal); Z53.21 Procedure and treatment not carried out due to patient leaving prior to being seen by health care provider

== ENCOUNTER 2022-10-18 14:42 | Emergency (ER) | payer OTHER ==
[~2022-10-18] VITALS: Ht 170.2 cm; Wt 81.6 kg
[2022-10-18 15:08] VITALS: BP 132/76; PULSE 89; RESP 18; TEMP 98; O2SAT 98
[2022-10-18] MEDS ORDERED: KETOROLAC 60 MG/2 ML VIAL IM ONE (15:25)
[2022-10-18 15:35] LABS: BASOPHILS % (AUTO) 0.4 % (0.0-2.0); EOSINOPHILS # (AUTO) 0.2 K/uL (0-0.4); EOSINOPHILS % (AUTO) 2.6 % (0.0-4.0); HEMATOCRIT 41.9 % (36-52); HEMOGLOBIN 14.1 g/dL (12.0-18.0); LYMPHOCYTES # (AUTO) 1.3 K/uL (2.0-11.5); LYMPHOCYTES % (AUTO) 19.6 % (20.5-51.1); MEAN CORPUSCULAR HEMOGLOBIN 30 pg (27-31); MEAN CORPUSCULAR HGB CONC 34 g/dL (33-37); MEAN CORPUSCULAR VOLUME 90.6 fL (80-94); MONOCYTES # (AUTO) 0.8 K/uL (0.8-1.0); MONOCYTES % (AUTO) 11.5 % (1.7-9.3); NEUTROPHILS # (AUTO) 4.5 K/uL (1.8-7.7); NEUTROPHILS % (AUTO) 65.9 % (42.2-75.2); PLATELET COUNT (AUTO) 225 K/uL (140-450); RED BLOOD CELL COUNT(AUTO) 4.63 MIL/uL (4.20-6.10); RED CELL DISTRIBUTION WIDTH 13.6 % (11.6-13.7); WHITE BLOOD COUNT (AUTO) 6.8 K/uL (4.8-10.8)
[2022-10-18 15:47] LABS: ALBUMIN 3.7 g/dL (3.4-5.0); ANION GAP 14.6 (8-16); CALCIUM 8.6 mg/dL (8.5-10.1); CARBON DIOXIDE 24.2 mmol/L (21-32); CREATININE 1.1 mg/dL (0.6-1.3); TOTAL BILIRUBIN 0.3 mg/dL (0.0-1.0); TOTAL PROTEIN, SERUM 7.2 g/dL (6.4-8.2)
[2022-10-18 15:51] LABS: POTASSIUM 2.8 mmol/L (3.5-5.1)
[2022-10-18] MEDS ORDERED: POTASSIUM CHLORIDE 10 MEQ TABER PO ONE (16:10)
[2022-10-18] MEDS ORDERED: IBUP-2213 PO (16:36)
[2022-10-18 16:46] VITALS: BP 129/76; PULSE 82; RESP 18; TEMP 98; O2SAT 98
== END 2022-10-18 16:46 | disposition home or self-care (01) ==
LOC: MED 14:42
DX: R10.9 Unspecified abdominal pain (principal); J45.909 Unspecified asthma, uncomplicated; J44.9 Chronic obstructive pulmonary disease, unspecified; I11.9 Hypertensive heart disease without heart failure; F17.200 Nicotine dependence, unspecified, uncomplicated; Z79.899 Other long term (current) drug therapy
CPT/HCPCS: 36415; 74176; 80053; 83690; 85025; 96372; 99285; J1885

== ENCOUNTER 2023-05-08 00:35 | Emergency (ER) | payer OTHER ==
[~2023-05-08] VITALS: Ht 170.2 cm; Wt 73.9 kg
[2023-05-08 01:19] VITALS: BP 138/71; PULSE 78; RESP 16; TEMP 98.4; O2SAT 99
[2023-05-08 02:59] LABS: BASOPHILS % (AUTO) 0.6 % (0.0-2.0); EOSINOPHILS # (AUTO) 0.3 K/uL (0-0.4); EOSINOPHILS % (AUTO) 4.1 % (0.0-4.0); HEMATOCRIT 39.8 % (36-52); HEMOGLOBIN 13.7 g/dL (12.0-18.0); LYMPHOCYTES # (AUTO) 1.8 K/uL (2.0-11.5); LYMPHOCYTES % (AUTO) 27.6 % (20.5-51.1); MEAN CORPUSCULAR HEMOGLOBIN 31 pg (27-31); MEAN CORPUSCULAR HGB CONC 35 g/dL (33-37); MEAN CORPUSCULAR VOLUME 89.2 fL (80-94); MONOCYTES # (AUTO) 0.8 K/uL (0.8-1.0); MONOCYTES % (AUTO) 11.9 % (1.7-9.3); NEUTROPHILS # (AUTO) 3.6 K/uL (1.8-7.7); NEUTROPHILS % (AUTO) 55.8 % (42.2-75.2); PLATELET COUNT (AUTO) 234 K/uL (140-450); RED BLOOD CELL COUNT(AUTO) 4.46 MIL/uL (4.20-6.10); RED CELL DISTRIBUTION WIDTH 13.1 % (11.6-13.7); WHITE BLOOD COUNT (AUTO) 6.5 K/uL (4.8-10.8)
[2023-05-08 03:07] LABS: BILIRUBIN,URINE NEGATIVE (NEGATIVE); BLOOD, URINE TRACE-I (NEGATIVE); LEUKOCYTE ESTERASE ,URINE NEGATIVE (NEGATIVE); NITRITE, URINE NEGATIVE (NEGATIVE); PROTEIN,URINE NEGATIVE (NEGATIVE); UGLUCOSE NEGATIVE (NEGATIVE); UROBILINOGEN,URINE 0.2 EU/dL (0.2 - 1)
[2023-05-08 03:13] LABS: APPEARANCE,URINE CLEAR (CLEAR); COLOR,URINE YELLOW (YELLOW)
[2023-05-08 03:15] LABS: BACTERIA,URINE FEW /HPF (None Seen); MUCUS,URINE 1+ /LPF (None Seen); RBC,URINE 0-5 /HPF (0-5); SQUAMOUS EPITHELIAL CELL,UR 0-3 (FEW) /LPF (0-3 (FEW)); WBC,URINE 0-5 /HPF (0-5)
[2023-05-08 03:18] LABS: AMPHETAMINE, URINE POSITIVE ng/ml (NEG <=1000); BARBITURATE, URINE NEGATIVE ng/ml (NEG <=200); BENZODIAZEPINE, URINE NEGATIVE ng/mL (NEG <=200); CANNABINOID, URINE POSITIVE ng/mL (NEG <=50); COCAINE, URINE NEGATIVE ng/mL (NEG <=300); OPIATE, URINE NEGATIVE ng/mL (NEG <=2000); PHENCYCLIDINE SCREEN,URINE NEGATIVE ng/mL (NEG <=25)
[2023-05-08 03:23] LABS: ANION GAP 9.1 (8-16); CALCIUM 8.6 mg/dL (8.5-10.1); CARBON DIOXIDE 31.4 mmol/L (21-32); CREATININE 1.1 mg/dL (0.6-1.3); POTASSIUM 3.5 mmol/L (3.5-5.1)
[2023-05-08 03:29] LABS: ALBUMIN 3.8 g/dL (3.4-5.0); BILIRUBIN,DIRECT 0.1 mg/dL (0.0-0.3); TOTAL BILIRUBIN 0.2 mg/dL (0.0-1.0); TOTAL PROTEIN, SERUM 6.9 g/dL (6.4-8.2)
[2023-05-08] MEDS: KETOROLAC 30 MG/ML VIAL IM ONE (03:56)
[2023-05-08] MEDS ORDERED: MELO-174 PO (05:34)
[2023-05-08 05:40] VITALS: BP 138/71; PULSE 78; RESP 16; TEMP 98.4; O2SAT 99
== END 2023-05-08 05:40 | disposition home or self-care (01) ==
LOC: MED 00:35
DX: R10.31 Right lower quadrant pain (principal); J44.9 Chronic obstructive pulmonary disease, unspecified; I10 Essential (primary) hypertension; E78.00 Pure hypercholesterolemia, unspecified; Z79.899 Other long term (current) drug therapy
CPT/HCPCS: 36415; 74176; 80048; 80076; 80305; 81001; 83690; 85025; 96372; 99285; J1885

== ENCOUNTER 2023-06-18 14:11 | Emergency (ER) | payer OTHER ==
[~2023-06-18] VITALS: Ht 180.3 cm; Wt 75.0 kg
[~2023-06-18 14:11] MED LIST changes: +MELO-174 PO
[2023-06-18 14:16] VITALS: BP 143/80; PULSE 79; RESP 18; TEMP 98.3; O2SAT 98
[2023-06-18] MEDS: BACITRACIN OINT 500 UNITS/GM PKT TP ONE (14:40)
[2023-06-18] MEDS: ACETAMINOPHEN EXTRA STRENGTH 500 MG TAB PO ONE (15:41)
[2023-06-18 16:41] VITALS: BP 143/80; PULSE 79; RESP 18; TEMP 98.3; O2SAT 98
== END 2023-06-18 16:42 | disposition home or self-care (01) ==
LOC: MED 14:11
DX: S01.112A Laceration without foreign body of left eyelid and periocular area, initial encounter (principal); S63.92XA Sprain of unspecified part of left wrist and hand, initial encounter; S43.402A Unspecified sprain of left shoulder joint, initial encounter; S80.02XA Contusion of left knee, initial encounter; J44.9 Chronic obstructive pulmonary disease, unspecified; I10 Essential (primary) hypertension; Z79.1 Long term (current) use of non-steroidal anti-inflammatories (NSAID); Z79.899 Other long term (current) drug therapy; V87.8XXA Person injured in other specified noncollision transport accidents involving motor vehicle (traffic), initial encounter; Y93.55 Activity, bike riding; Y92.89 Other specified places as the place of occurrence of the external cause; Y99.8 Other external cause status
CPT/HCPCS: 70450; 70486; 73030; 73130; 73562; 90471; 90715; 99285

== ENCOUNTER 2023-10-28 16:28 | Inpatient (IN) | payer OTHER ==
[~2023-10-28] VITALS: Ht 180.3 cm; Wt 74.8 kg
[2023-10-28 16:34] VITALS: BP 81/56; PULSE 94; RESP 20; TEMP 98.1; O2SAT 99
[2023-10-28 17:07] LABS: BASOPHILS % (AUTO) 0.3 % (0.0-2.0); EOSINOPHILS # (AUTO) 0.6 K/uL (0-0.4); EOSINOPHILS % (AUTO) 5.7 % (0.0-4.0); HEMATOCRIT 42.9 % (36-52); LYMPHOCYTES # (AUTO) 1.4 K/uL (2.0-11.5); LYMPHOCYTES % (AUTO) 13.8 % (20.5-51.1); MEAN CORPUSCULAR HEMOGLOBIN 31 pg (27-31); MEAN CORPUSCULAR HGB CONC 33 g/dL (33-37); MEAN CORPUSCULAR VOLUME 93.7 fL (80-94); MONOCYTES # (AUTO) 0.8 K/uL (0.8-1.0); MONOCYTES % (AUTO) 7.5 % (1.7-9.3); NEUTROPHILS # (AUTO) 7.5 K/uL (1.8-7.7); NEUTROPHILS % (AUTO) 72.7 % (42.2-75.2); PLATELET COUNT (AUTO) 220 K/uL (140-450); RED BLOOD CELL COUNT(AUTO) 4.58 MIL/uL (4.20-6.10); RED CELL DISTRIBUTION WIDTH 13.8 % (11.6-13.7); WHITE BLOOD COUNT (AUTO) 10.3 K/uL (4.8-10.8)
[2023-10-28 17:18] LABS: ANION GAP 13.3 (8-16); CALCIUM 8.8 mg/dL (8.5-10.1); CARBON DIOXIDE 28.9 mmol/L (21-32); CREATININE 3.8 mg/dL (0.6-1.3); POTASSIUM 3.2 mmol/L (3.5-5.1)
[2023-10-28] MEDS: NACL 0.9% 1,000 ML IV ONE (18:19)
[2023-10-28] MEDS: ASPIRIN 81 MG TAB.CHEW PO ONE (18:20)
[2023-10-28] MEDS: ACETAMINOPHEN 100 ML IV ONE (18:37)
[2023-10-28] MEDS ORDERED: ACETAMINOPHEN 325 MG TAB PO PRN (18:40)
[2023-10-28] MEDS ORDERED: ONDANSETRON 4 MG/2 ML VIAL IVP PRN (18:40)
[2023-10-28] MEDS: NACL 0.9% 1,000 ML IV SCH (19:21)
[2023-10-28] MEDS: MORPHINE SULFATE 2 MG/ML SYR IVP PRN (20:13)
[2023-10-28] MEDS: HYDROcodone/APAP 5/325 MG 1 TAB TAB PO PRN (21:41)
[2023-10-28 22:24] VITALS: BP 104/62; PULSE 72; RESP 17; TEMP 98; O2SAT 100
[2023-10-28] MEDS ORDERED: POTASSIUM CHLORIDE 10 MEQ TABER PO ONE (22:25)
[2023-10-29] MEDS ORDERED: ASPIRIN 81 MG TAB.CHEW PO SCH (09:00)
== END 2023-10-28 22:50 | disposition left against medical advice (07) | DRG 203 ==
LOC: MED 16:28 → MTU 18:39
PROVIDERS: ADMIT Hospitalist; ATTEND Hospitalist
DX: R07.89 Other chest pain (principal); N17.9 Acute kidney failure, unspecified; E78.5 Hyperlipidemia, unspecified; I10 Essential (primary) hypertension; J45.909 Unspecified asthma, uncomplicated; Z53.29 Procedure and treatment not carried out because of patient's decision for other reasons; Z95.5 Presence of coronary angioplasty implant and graft
CPT/HCPCS: 36415; 71045; 76770; 80048; 84484; 85025; 93005; 96360; 99285; J1644; J2270; Q0092